=== PATIENT | male | born 1995 | race Two or more races ===

== ENCOUNTER 2021-11-17 14:34 | Outpatient (REF) | payer OTHER, SELFPAY ==
[2021-11-17 15:15] LABS: COVID-19 Test Negative (Negative); IDNOW Serial# 08D9AD1C
== END 2021-11-17 14:35 | disposition home or self-care (01) ==
LOC: HO.LAB 14:34
PROVIDERS: Visit Provider Internal Medicine
DX: Z20.822 Contact with and (suspected) exposure to COVID-19 (principal)
CPT/HCPCS: 87635; C9803